=== PATIENT | male | born 1985 | race Caucasian/White ===

== ENCOUNTER → 2017-09-17 | Outpatient (REF) ==
[~2017-09-17] MED LIST: AZIT-1 PO; AZIT1PAC21 PO; CYPR4TAB32 PO; DENIES; EPIN0.3P3 IM; FAMO40TA8 PO; IBU800 PO; LEVO750T25 PO; LOR5 PO; LOR7.5/325 PO; MOM PO; NO MEDS; OXY10 PO; [UNRECOGNIZED DRUG - CODE] PO
== END ==
LOC: AUD 10:30
PROVIDERS: ATTEND Internal Medicine
DX: Z01.10 Encounter for examination of ears and hearing without abnormal findings (principal)
CPT/HCPCS: 92552